=== PATIENT | male | born 2000 | race African-American/Black ===

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

== ENCOUNTER 2023-08-01 10:51 | Emergency (ER) | payer OTHER ==
[2023-08-01 11:04] VITALS: BP 125/62; PULSE 92; RESP 18; TEMP 98.8; BMI 28.5
[2023-08-01] MEDS ORDERED: ALBUTEROL SO4 2.5/IPRATROPIUM 0.5 INH SOL 3 ML VIAL.NEB. NEB ONE (12:29)
[2023-08-01] MEDS ORDERED: IBUPROFEN 400 MG TABLET (FP) PO ONE (12:29)
[2023-08-01] MEDS ORDERED: ACETAMINOPHEN 500 MG TABLET (FP) ONE (12:30)
[2023-08-01] MEDS: ALBUTEROL SO4 2.5/IPRATROPIUM 0.5 INH SOL 3 ML VIAL.NEB. NEB ONE (12:34)
[2023-08-01] MEDS: ACETAMINOPHEN 500 MG TABLET (FP) PO ONE (12:34)
[2023-08-01] MEDS: IBUPROFEN 400 MG TABLET (FP) PO ONE (12:34)
[2023-08-01 12:51] LABS: THROAT:GRP A STREP NOT DETECTED (NOTDETECTED)
== END 2023-08-01 15:00 | disposition home or self-care (01) ==
LOC: JER 10:51
PROC: 3E0F7GC Introduction of Other Therapeutic Substance into Respiratory Tract, Via Natural or Artificial Opening (ICD-10-PCS; principal; 2023-08-01)
DX: R05.1 Acute cough (principal); J06.9 Acute upper respiratory infection, unspecified; R09.81 Nasal congestion; R07.89 Other chest pain; R06.02 Shortness of breath; Z20.822 Contact with and (suspected) exposure to COVID-19
CPT/HCPCS: 0241U-QW; 71046-TC-FY; 87651; 99284-25